=== PATIENT | female | born 1955 | race Caucasian/White ===

== ENCOUNTER → 2018-04-29 | Outpatient (CLI) | payer OTHER, MEDICAID | END | disposition home or self-care (01) | LOC: CFH 09:50 | PROVIDERS: ATTEND Nurse Practitioner | DX: Z12.31 Encounter for screening mammogram for malignant neoplasm of breast (principal); Z13.820 Encounter for screening for osteoporosis; M81.0 Age-related osteoporosis without current pathological fracture; N95.8 Other specified menopausal and perimenopausal disorders; R05 Cough; Z72.0 Tobacco use | CPT/HCPCS: 71250; 77063; 77080; 77067 ==

== ENCOUNTER 2019-02-06 09:52 | Emergency (ER) | payer MEDICAID, OTHER ==
[~2019-02-06] VITALS: Ht 147.3 cm; Wt 45.5 kg
[2019-02-06 14:15] VITALS: BP 138/71
== END 2019-02-06 14:17 | disposition home or self-care (01) ==
LOC: ED 12:11
DX: R42 Dizziness and giddiness (principal); R26.2 Difficulty in walking, not elsewhere classified; E78.00 Pure hypercholesterolemia, unspecified; I10 Essential (primary) hypertension; J44.9 Chronic obstructive pulmonary disease, unspecified; Z95.5 Presence of coronary angioplasty implant and graft
CPT/HCPCS: 36415; 70496; 70498; 70551; 80048; 82040; 85025; 93005; 99284; Q9967

== ENCOUNTER 2019-02-07 08:48 | Emergency (ER) | payer OTHER, MEDICAID ==
[~2019-02-07] VITALS: Ht 147.3 cm; Wt 45.0 kg
--- NOTE | 2019-02-07 09:04 | NUR ---
63 Y/O BIB AMBULANCE WITH C/O "I WAS HERE YESTERDAY AND TODAY I JUST CAN'T GET ANY PART OF MY BODY TO WORK. I SMOKED MARIJUANA LAST NIGHT, BUT I DIDN'T HAVE ANY TODAY." PER REPORT, PT WAS HERE YESTERDAY DX WITH VERTIGO. THIS MORNING SHE WENT TO THE BATHROOM AND COULDN'T GET UP. PT WAS D/C WITH MECLIZINE. PT PLACED ON CONT PULSE OX,NIBP. PIV ESTABLISHED TELECOMMUNICATIONS ENGINEER. PER WHEN EMS WAS AT HOME, HE STATED THAT HER BEHAVIOR IS ABNORMAL THIS MORNING.
--- NOTE | 2019-02-07 09:33 | NUR ---
PT RESTING ON GURNEY. BEDSIDE. NO ACUTE DISTRESS NOTED. BEDSIDE. NO NEEDS REQUESTED AT THIS TIME. VSS.
[2019-02-07 09:58] LABS: BASOPHILS # (AUTO) 0.03 x10^3/uL (0-0.1); BASOPHILS % (AUTO) 1 % (0-1); EOSINOPHILS # (AUTO) 0.07 x10^3/uL (0-0.4); EOSINOPHILS % (AUTO) 1 % (1-7); LYMPHOCYTES # (AUTO) 1.06 x10^3/uL (1-3.4); LYMPHOCYTES % (AUTO) 20 % (22-44); MD NO; MEAN CORPUSCULAR HEMOGLOBIN 31.6 pg (27.0-34.8); MEAN CORPUSCULAR HGB CONC 32.6 g/dL (32.4-35.8); MEAN CORPUSCULAR VOLUME 97.2 fL (80-100); MEAN PLATELET VOLUME 6.2 fL (7.4-10.4); MONOCYTES # (AUTO) 0.37 x10^3/uL (0.2-0.8); MONOCYTES % (AUTO) 7 % (2-9); NEUTROPHILS # (AUTO) 3.78 x10^3/uL (1.8-6.8); NEUTROPHILS % (AUTO) 71 % (42-75); PLATELET COUNT 202 x10^3/uL (130-400); RED BLOOD COUNT 4.43 x10^6/uL (3.82-5.3)
[2019-02-07 10:10] LABS: ALANINE AMINOTRANSFERASE 22 U/L (12-78); ALBUMIN 3.6 g/dL (3.4-5.0); ANION GAP 4 mmol/L (5-15); CALCIUM 8.3 mg/dL (8.5-10.1); CHLORIDE 99 mmol/L (98-107); CREATININE 0.58 mg/dL (0.55-1.02)
[2019-02-07 10:20] LABS: ALKALINE PHOSPHATASE 76 U/L (45-117); BILIRUBIN,TOTAL 0.3 mg/dL (0.2-1.0); FREE T4 (FREE THYROXINE) 0.95 ng/dL (0.76-1.46); TOTAL PROTEIN 6.7 g/dL (6.4-8.2)
--- NOTE | 2019-02-07 10:21 | NUR ---
PT AMBULATORY WITH ASSISTANCE TO BATHROOM. HAT PLACED IN TOILET. PT MISSED THE HAT WHEN SHE URINATED. WILL CONTINUE TO MONITOR. WITH PT.
[2019-02-07 11:44] VITALS: BP 135/67
--- NOTE | 2019-02-07 11:50 | NUR ---
PT RESTING ON GURNEY. NO ACUTE DISTRESS NOTED. BEDSIDE. AWAITING IMAGING
--- NOTE | 2019-02-07 12:01 | NUR ---
PT STATES "I CAN'T GO TO THE BATHROOM RIGHT YET. I DON'T WANT WATER IN CASE I HAVE TO GO TO THE BATHROOM IN THE MIDDLE OF SOMETHING. I'LL GIVE YOU SOME SOON." NO ACUTE DISTRESS NOTED. BEDSIDE.
--- NOTE | 2019-02-07 13:37 | NUR ---
Patient/Caregiver given discharge instructions and they have confirmed that they understand the instructions. Patient ambulatory with steady gait TO DISCHARGE. PT IN WHEELCHAIR NOW TO LEAVE ER. PT LEFT WITH ALL PERSONAL BELONGINGS. PT WITH .
--- NOTE | 2019-02-07 13:39 | NUR ---
LATE ENTRY FOR 1242: RECEIVED BEDSIDE REPORT FROM CHRISTOPHER SCHROEDER
== END 2019-02-07 13:41 | disposition home or self-care (01) ==
LOC: ED 09:26
DX: R42 Dizziness and giddiness (principal); R53.1 Weakness; I10 Essential (primary) hypertension; E78.00 Pure hypercholesterolemia, unspecified; J44.9 Chronic obstructive pulmonary disease, unspecified; F17.200 Nicotine dependence, unspecified, uncomplicated; Z95.5 Presence of coronary angioplasty implant and graft
CPT/HCPCS: 36415; 80053; 84439; 84443; 85025; 93005; 99283; 99284